=== PATIENT | male | born 1935 | race Caucasian/White ===

== ENCOUNTER 2022-09-02 05:34 | Observation (INO) ==
[2022-09-02] MEDS ORDERED: Chlorhexidine MOUTHWASH 0.12% 15 ML UDC ONE (05:47)
[2022-09-02] MEDS ORDERED: Buffered Lidocaine 1% SYRIN 1 ml INTRADERM ONE (06:00)
[2022-09-02] MEDS ORDERED: Lactated Ringers 1000 ml BAG 1,000 ML IV SCH ×2 (06:00→10:00)
[2022-09-02] MEDS ORDERED: Lidocaine 2% PF 5 ML VIAL ONE (06:04)
[2022-09-02] MEDS ORDERED: Ondansetron 4 mg VIAL 2 MG/ML 2 ml VIAL ONE (06:04)
[2022-09-02] MEDS ORDERED: Dexamethasone IV 4 MG/ML VIAL 1 ml VIAL ONE (06:04)
[2022-09-02] MEDS ORDERED: Propofol 10 MG/ML 20 ML BTL ONE (06:04)
[2022-09-02] MEDS ORDERED: Rocuronium 50 mg VIAL 10 mg/ml 5 ml VIAL (50 mg) ONE ×2 (06:12→09:13)
[2022-09-02] MEDS ORDERED: fentaNYL 100 mcg/2 ml 50 MCG/ML VIAL ONE ×2 (06:16→10:48)
[2022-09-02] MEDS ORDERED: Sevoflurane BOTTLE ONE (06:23)
[2022-09-02 06:57] LABS: Rapid COVID-19 Molecular Undetected (Undetected)
[2022-09-02] MEDS ORDERED: Lidocaine 1% w EPI 1:100,000 MDV 20 ML VIAL ONE (07:00)
[2022-09-02] MEDS ORDERED: ceFAZolin VIAL VIAL ONE (07:01)
[2022-09-02] MEDS ORDERED: Gelfoam Sponge SIZE 100 SPONGE ONE (07:01)
[2022-09-02] MEDS ORDERED: Thrombin 5,000 UNITS 1 APPLIC KIT - topical use - TOPICAL ONE (07:01)
[2022-09-02] MEDS ORDERED: Clindamycin 300 MG/D5W BAG 300 MG/50 ML BAG IV ONE (07:03)
[2022-09-02] MEDS ORDERED: CLINDAMYCIN IV ONE ×2 (07:03→07:04)
[2022-09-02] MEDS ORDERED: D5W IV ONE ×2 (07:03→07:04)
[2022-09-02] MEDS ORDERED: Clindamycin 600 MG/D5W BAG 600 MG/50 ML BAG IV ONE (07:13)
[2022-09-02] MEDS ORDERED: fentaNYL 100 mcg/2 ml 50 MCG/ML VIAL IV PRN (08:00)
[2022-09-02] MEDS ORDERED: Prochlorperazine 5 mg/ml 2 ml VIAL (10 mg) IV PRN (08:00)
[2022-09-02] MEDS ORDERED: Naloxone 0.4 mg VIAL 0.4 mg/ml 1 ml VIAL IV PRN (08:00)
[2022-09-02] MEDS ORDERED: Acetaminophen IV 1 GM/100ML 1,000 MG/100 ML BAG IV ONE (08:01)
[2022-09-02] MEDS ORDERED: Calcium Carb (TUMS) 500 mg CHEW TAB PO PRN (09:58)
[2022-09-02] MEDS ORDERED: Senna TAB 8.6 mg TAB PO PRN (09:58)
[2022-09-02] MEDS ORDERED: Ondansetron 4 mg VIAL 2 MG/ML 2 ml VIAL IV PRN (09:58)
[2022-09-02] MEDS: HYDROcodone/ACETAMIN 5/325 mg TAB PO PRN ×2 (12:04→19:03)
[2022-09-02] MEDS: Morphine 2 MG/ML SYRINGE IV PRN ×2 (16:51→22:21)
[2022-09-03] MEDS: HYDROcodone/ACETAMIN 5/325 mg TAB PO PRN ×3 (07:32→20:38)
[2022-09-03] MEDS: Aspirin EC 81 mg TAB.EC (enteric coated) PO SCH (08:21)
[2022-09-04] MEDS: Aspirin EC 81 mg TAB.EC (enteric coated) PO SCH (09:15)
[2022-09-04 09:56] VITALS: BP 101/52
== END 2022-09-04 11:50 | disposition home or self-care (01) ==
LOC: SSU 05:34 → OR 05:34
PROVIDERS: ADMIT Neurological Surgery; ATTEND Neurological Surgery